=== PATIENT | male | born 1985 | race Caucasian/White ===

== ENCOUNTER 2025-09-23 13:21 | Emergency (ER) | payer BC, SELFPAY ==
[2025-09-23 13:24] VITALS: BP 137/91
--- NOTE | 2025-09-23 14:41 | ED.GENMED ---
History of Present Illness
General
Chief Complaint: Musculo-Skeletal Complaint
Source: patient
Exam Limitations: none
Time Seen by Provider: 09/23/25 13:55
Nursing documentation reviewed up to this point in time: agreed with
History of Present Illness
History of Present Illness:
Patient is a 40-year-old male presents to the ER complaining left knee pain. Patient reports last night he was walking up the stairs doing laundry and felt pain in his anterior left knee. He is able to bear weight he complains of with walking up
steps but has minimal discomfort with weightbearing normally. He denies any other injuries or trauma.
Phy Exam
General Physical Exam
General Presentation: no apparent distress
General age: appears stated age
General Skin: warm and dry
General Habitus: normal
General Mental: alert
Neurological Exam
Neurological Exam: alert and oriented x3
Musculoskeletal Exam
Musculoskeletal Exam: other (lle with strong pulses no obvious swelling or ecchymosis; full ROM no ligament laxity or pain with medial or lateral stress negative anterior drawer)
Skin Exam
Skin Exam: normal color and warm/dry
Psychiatric Exam
Psychiatric Exam: normal mood/affect
Course
Orders/Labs/Results
Orders:
Orders
09/23/25 13:26
Knee, Left 4 or More Views [CR Knee - Left 4 Or More View*] Urgent
Comment:
Reason For Exam: pain
09/23/25 14:38
Knee Immobilizer Left-Treatmen ONCE
Vital Signs
Initial and Last Documented VS:
Initial Vital Signs
Temp Pulse Resp BP Pulse Ox
98.9 F 74 19 137/91 96
09/23/25 13:24 09/23/25 13:24 09/23/25 13:24 09/23/25 13:24 09/23/25 13:24
Last Documented Vital Signs
Temp Pulse Resp BP Pulse Ox
98.9 F 74 19 137/91 96
09/23/25 13:24 09/23/25 13:24 09/23/25 13:24 09/23/25 13:24 09/23/25 14:45
MDM/Problems Addressed
Differential Diagnosis Includes:
Not limited to fracture sprain strain, possible meniscus injury
MDM/Problems Addressed:
No obvious swelling good range of motion no pain with medial lateral stress. Possible sprain strain less likely meniscus injury however with discomfort will DC with immobilizer ice ,elevation, NSAIDs and outpatient Ortho if needed.
*Radiology
Radiology exam reviewed: preliminary read by ED provider
*Pulse Oximetry
SaO2: 96
Patient hypoxic: no
*Critical Care Note
Total Time (30-74mins, 75-104mins- exclusive of procedures): Not Applicable
ED Attending Note
-
Portions of this chart may have been created with voice recognition software.� Occasional wrong word or��sound alike� substitutions may have occurred due to the inherent limitations of voice recognition software.
Discharge Plan
Departure
Patient Disposition: Home (Routine Discharge)
Date of Disposition: 09/23/25
Time of Disposition: 14:46
Patient with high blood pressure during this ER visit?: Yes
Condition: Fair
Covid-19: Not Applicable
Discharge Problem:
Knee sprain
Instructions: Knee Sprain (DC), Knee Immobilizer (DC), Using Cold for Pain
Referrals:
UNKNOWN - PT NOT,INTERVIEWE [Family Provider]
Reid Hardy MD [Active, Orthopedics]
Activity Restrictions/Additional Instructions:
As discussed wear immobilizer for support; remove at night while sleeping. Keep elevated as much as possible, and ice the affected area for the next 24 hours 20 minutes at a time several times a day. Ibuprofen as needed every 8 hours with food.
Follow-up with orthopedics in the next several days and return if any worsening of symptoms
Interventions
Interventions:
*General Assessment Last Done: 09/23/25 13:24
*Neglect/Abuse Screening Last Done: 09/23/25 13:24
*Risk Screen - Suicide (C-SSRS) Last Done: 09/23/25 13:24
Discharge Date and Time
Print Language: SPANISH
== END 2025-09-23 15:10 | disposition home or self-care (01) ==
LOC: EMR 13:21
PROVIDERS: EMERGENCY PHYSICIAN Emergency Medicine
DX: S83.92XA Sprain of unspecified site of left knee, initial encounter (principal); X58.XXXA Exposure to other specified factors, initial encounter; Y93.01 Activity, walking, marching and hiking
CPT/HCPCS: 99283; 29505; 73564